=== PATIENT | male | born 1970 | race Caucasian/White ===

== ENCOUNTER 2023-03-22 09:17 | Emergency (ER) | payer BC ==
[~2023-03-22] VITALS: Ht 177.8 cm; Wt 78.1 kg
[2023-03-22 09:18] VITALS: BP 133/82
[2023-03-22] MEDS ORDERED: SEMA0.257 (09:31)
[2023-03-22] MEDS ORDERED: OMEP-173 (09:31)
[2023-03-22] MEDS ORDERED: MORPHINE 2 MG/ML 1ML VIAL IV ONE (09:55)
[2023-03-22] MEDS ORDERED: NS 1,000 ML IV ONE (09:55)
[2023-03-22] MEDS ORDERED: ONDANSETRON 4MG 2ML VIAL IV ONE (09:55)
[2023-03-22 11:28] LABS: BASO % 0.4 % (0.0-1.0); EOS # 0.2 10^3/uL (0.0-0.5); EOS % 2.3 % (0.0-3.0); HEMATOCRIT 44.2 % (42.0-52.0); HEMOGLOBIN 14.9 g/dl (13.5-17.5); LYMPH # 1.6 10^3/uL (1.5-5.0); LYMPH % 20.9 % (24.0-44.0); MEAN CORPUSCULAR HEMOGLOBIN 29.6 pg (27.0-33.0); MEAN CORPUSCULAR HGB CONC 33.7 g/dl (32.0-36.5); MEAN CORPUSCULAR VOLUME 87.9 fl (80.0-96.0); MONO # 0.5 10^3/uL (0.0-0.8); MONO % 6.4 % (2.0-8.0); NEUTROPHILS # 5.2 10^3/uL (1.5-8.5); NEUTROPHILS % 69.7 % (36.0-66.0); PLATELET COUNT, AUTOMATED 237 10^3/uL (150-450); RED BLOOD COUNT 5.03 10^6/uL (4.30-6.10); WHITE BLOOD COUNT 7.4 10^3/uL (4.0-10.0)
[2023-03-22] MEDS ORDERED: ISOVUE-370 76% 100ML VIAL As Ordered ONE (11:42)
[2023-03-22 11:51] LABS: LIPASE 48 U/L (12-53)
[2023-03-22 11:53] LABS: ALKALINE PHOSPHATASE 46 U/L (46-116); ALT/SGPT 33 U/L (7.0-40); AST/SGOT 14 U/L (<34); BILIRUBIN,DIRECT 0.2 MG/DL (<0.4); BILIRUBIN,TOTAL 0.5 MG/DL (0.3-1.2); BLOOD UREA NITROGEN 11 MG/DL (9-23); CALCIUM LEVEL 8.6 MG/DL (8.5-10.1); CARBON DIOXIDE LEVEL 29 MMOL/L (20-31); CHLORIDE LEVEL 108 MMOL/L (98-107); CREATININE FOR GFR 0.93 MG/DL (0.70-1.30); GLOMERULAR FILTRATION RATE > 60.0 (>56); GLUCOSE, FASTING 106 MG/DL (60-100); POTASSIUM SERUM 4.4 MMOL/L (3.5-5.1); SODIUM LEVEL 140 MMOL/L (136-145); TOTAL PROTEIN 6.5 G/DL (5.7-8.2)
== END 2023-03-22 12:39 | disposition home or self-care (01) ==
LOC: M ED 09:17
DX: R10.12 Left upper quadrant pain (principal)
CPT/HCPCS: 74177; 80047; 80048; 80076; 83690; 85025; 96361; 96374; 96375; 99283; J2405; Q9967

== ENCOUNTER 2024-04-09 08:53 | Day surgery (SDC) | payer BC ==
[~2024-04-09] VITALS: Ht 177.8 cm; Wt 76.7 kg
[~2024-04-09 08:53] MED LIST: OMEP-173 PO; SEMA0.257; SEMA0.257 SC
[2024-04-09] MEDS: NS 1,000 ML IV ONE (09:12)
[2024-04-09] MEDS ORDERED: fentaNYL 100 MCG/2 ML INJECTION As Ordered ONE (09:33)
[2024-04-09] MEDS ORDERED: propofoL 200 MG/20 ML VIAL As Ordered ONE (09:52)
[2024-04-09] MEDS ORDERED: LIDOCAINE 2% 100MG/5ML SDV (FOR ANES.) As Ordered ONE (09:52)
[2024-04-09 10:20] VITALS: TEMP 98.7
[2024-04-09 10:35] VITALS: BP 142/79; O2SAT 100
== END 2024-04-09 10:51 | disposition home or self-care (01) ==
LOC: M OPP 08:53
PROVIDERS: ATTEND Internal Medicine Gastroenterology
DX: Z12.11 Encounter for screening for malignant neoplasm of colon (principal); Z12.12 Encounter for screening for malignant neoplasm of rectum; K64.0 First degree hemorrhoids; K31.7 Polyp of stomach and duodenum; K21.00 Gastro-esophageal reflux disease with esophagitis, without bleeding; Z79.899 Other long term (current) drug therapy; Z90.49 Acquired absence of other specified parts of digestive tract
CPT/HCPCS: 43239; 45378; 88305; J3010

== ENCOUNTER → 2024-08-19 | Outpatient (REF) | payer BC | LOC: M SFHCDERM 13:22 | PROVIDERS: ATTEND Physician Assistant | DX: D48.9 Neoplasm of uncertain behavior, unspecified (principal) ==